=== PATIENT | female | born 1985 | race Hispanic/Latino ===

== ENCOUNTER → 2021-07-07 12:31 | Outpatient (CLI) | payer OTHER, MEDICAID, SELFPAY ==
[2021-07-07 19:38] LABS: Add Manual Diff / Slide Review NO; Basophils Absolute Auto 100 /uL (0-100); Basophils Percent Auto 1.3 % (0-2); Eosinophils Absolute Auto 100 /uL (0-450); Eosinophils Percent Auto 1.7 % (2-4); Hematocrit 39.8 % (36-46); Hemoglobin 13.2 g/dL (12.0-16.0); Lymphocytes Absolute Auto 2100 /uL (1100-4500); Mean Corpuscular HGB Conc 33.2 % (30-36); Mean Corpuscular Hemoglobin 31.8 PG (26-34); Mean Corpuscular Volume 95.8 fL (80-100); Monocytes Absolute Auto 600 /uL (0-900); Monocytes Percent Auto 9.7 % (3-14); Neutrophils Absolute Auto 3100 /uL (1500-7000); Neutrophils Percent Auto 52.3 % (50-75); Platelet Count 259 X10^3/uL (150-400); Red Blood Cell Count 4.16 X10^6/uL (4.0-5.2); Red Cell Distribution Width 12.9 % (11.6-14.8); White Blood Cell Count 5.9 X10^3/uL (4.5-11.0)
[2021-07-07 19:40] LABS: Alanine Aminotransferase 19 IU/L (<35); Albumin 4.4 g/dL (3.5-5.0); Albumin Globulin Ratio 1.5 (1.0-2.8); Alkaline Phosphatase 38 U/L (38-126); Aspartate Aminotransferase 22 IU/L (14-36); BUN Creatinine Ratio 24.6 (6-22); Bilirubin Total 1.6 mg/dL (0.2-1.3); Blood Urea Nitrogen 14 mg/dL (7-17); Calcium 10.1 mg/dL (8.4-10.2); Carbon Dioxide 31 mmol/L (22-32); Chloride 99 mmol/L (98-107); Estimated Glomerular Filt Rate > 60.0 mL/min (>60); Globulin 2.9 g/dL (1.7-4.1); Glucose 101 mg/dL (70-100); HEMOLYSIS < 15 (0-50); Potassium 4.4 mmol/L (3.4-5.1); Sodium 136 mmol/L (137-145); Total Protein 7.3 g/dL (6.3-8.2)
== END ==
PROVIDERS: PCP Physician Assistant; Visit Provider Physician Assistant
DX: F90.9 Attention-deficit hyperactivity disorder, unspecified type (principal); Z79.899 Other long term (current) drug therapy; F41.9 Anxiety disorder, unspecified
CPT/HCPCS: 80053; 85025

== ENCOUNTER → 2021-07-21 09:22 | Outpatient (CLI) | payer OTHER, MEDICAID, SELFPAY ==
[2021-07-21 19:28] LABS: Alanine Aminotransferase 20 IU/L (<35); Albumin 4.1 g/dL (3.5-5.0); Albumin Globulin Ratio 1.5 (1.0-2.8); Alkaline Phosphatase 34 U/L (38-126); Aspartate Aminotransferase 23 IU/L (14-36); BUN Creatinine Ratio 21.4 (6-22); Blood Urea Nitrogen 12 mg/dL (7-17); Carbon Dioxide 27 mmol/L (22-32); Chloride 104 mmol/L (98-107); Estimated Glomerular Filt Rate > 60.0 mL/min (>60); Globulin 2.8 g/dL (1.7-4.1); Glucose 100 mg/dL (70-100); HEMOLYSIS < 15 (0-50); Potassium 4.5 mmol/L (3.4-5.1); Sodium 138 mmol/L (137-145); Total Protein 6.9 g/dL (6.3-8.2)
[2021-07-21 20:40] LABS: Urine N gonorrhoeae NOT DETECTED
[2021-07-21 20:42] LABS: Urine Chlamydia NOT DETECTED
[2021-07-22 08:45] LABS: HCG Quantitative /Beta subunit 22.6 mIU/mL
[2021-07-22 16:26] LABS: HIV 1 & 2 Ab/Ag 4th Gen Combo NEGATIVE (NEGATIVE)
[2021-07-22 16:39] LABS: Hep C Virus Ab w/Reflex Quant NEGATIVE s/c (NEGATIVE)
[2021-07-23 08:53] LABS: Candida species Negative (Negative); Gardnerella vaginalis Negative (Negative); Trichomoas vaginalis Negative (Negative)
[2021-07-23 08:53] LABS: RPR Screen Non Reactive (Non Reactive)
== END ==
PROVIDERS: PCP Physician Assistant; Visit Provider Physician Assistant
DX: Z11.3 Encounter for screening for infections with a predominantly sexual mode of transmission (principal); Z20.5 Contact with and (suspected) exposure to viral hepatitis; R17 Unspecified jaundice
CPT/HCPCS: 80053; 81025; 84702; 86592; 86803; 87389; 87480; 87491; 87510; 87591; 87660

== ENCOUNTER 2021-07-23 22:08 | Emergency (ER) | payer OTHER, MEDICAID, SELFPAY ==
[2021-07-23 22:24] VITALS: BP 123/75; PULSE 105; RESP 20; TEMP 37.2; O2SAT 97
--- NOTE | 2021-07-23 22:56 | DI.US.S_ITS ---
PROCEDURE: US OB <= 14 WEEKS FETUS INDICATIONS: pelvic pain, TECHNIQUE: Real-time scanning was performed of the fetus and maternal pelvic organs, with image documentation. Endovaginal scanning was also performed to better visualize the fetus and maternal ovaries. COMPARISON: None. FINDINGS: The uterus is anteverted measuring 8.9 x 4.6 x 5.0 cm. The endometrial complex measures up to 11.5 mm in thickness. A small posterior midline subserosal and intramural fibroid measures 1.9 x 1.2 x 1.6 cm. No intrauterine gestational sac is seen. The right ovary measures 3.8 x 2.0 x 2.3 cm. The left ovary measures 4.5 x 2.9 x 4.9 cm. A complex cyst is seen in the left ovary measuring 2.9 x 2.8 x 2.8 cm with septations and low-level echoes. No free fluid is seen in the pelvis. IMPRESSION: 1. of unknown location. No intrauterine or ectopic is seen. The patient remains at risk for ectopic . Recommend clinical correlation and follow-up with serial beta HCG and repeat ultrasound as needed. 2. Left ovarian 2.9 cm cyst may represent a corpus luteal cyst. Attention on follow-up exams is recommended. We strive to produce accurate, complete, and clear reports of imaging services. To assist us in improving patient care, this report was composed using standard report templates and voice recognition software. Therefore, it may contain abnormal punctuation, insertions and/or omissions. Occasional wrong-word or sound-alike substitutions may occur. Though we review the report and make efforts to correct it, we do recommend that the report be read carefully in proper context to recognize any text inaccuracies. Dictated by: Andres Shah M.D. on 07/24/2021 at 0:58 Approved by: Andres Shah M.D. on 07/24/2021 at 1:03
[2021-07-23 23:00] LABS: Add Manual Diff / Slide Review NO; Basophils Absolute Auto 100 /uL (0-100); Basophils Percent Auto 0.9 % (0-2); Eosinophils Absolute Auto 100 /uL (0-450); Eosinophils Percent Auto 1.1 % (2-4); Hematocrit 41.1 % (36-46); Hemoglobin 14.5 g/dL (12.0-16.0); Lymphocytes Absolute Auto 2800 /uL (1100-4500); Mean Corpuscular HGB Conc 35.3 % (30-36); Mean Corpuscular Hemoglobin 32.6 PG (26-34); Mean Corpuscular Volume 92.4 fL (80-100); Monocytes Absolute Auto 500 /uL (0-900); Monocytes Percent Auto 5.1 % (3-14); Neutrophils Absolute Auto 6000 /uL (1500-7000); Neutrophils Percent Auto 62.9 % (50-75); Platelet Count 261 X10^3/uL (150-400); Red Blood Cell Count 4.44 X10^6/uL (4.0-5.2); Red Cell Distribution Width 12.4 % (11.6-14.8); White Blood Cell Count 9.5 X10^3/uL (4.5-11.0)
[2021-07-23 23:07] LABS: BUN Creatinine Ratio 19.6 (6-22); Blood Urea Nitrogen 11 mg/dL (7-17); Calcium 9.9 mg/dL (8.4-10.2); Carbon Dioxide 26 mmol/L (22-32); Chloride 103 mmol/L (98-107); Estimated Glomerular Filt Rate > 60.0 mL/min (>60); Glucose 85 mg/dL (70-100); HEMOLYSIS < 15 (0-50); Potassium 3.5 mmol/L (3.4-5.1); Sodium 139 mmol/L (137-145)
[2021-07-23 23:25] LABS: HCG Quantitative /Beta subunit 88.1 mIU/mL
--- NOTE | 2021-07-23 23:47 | ED_ITS ---
HPI - Female Genitourinary General Chief complaint: OB/Uterine Contractions Stated complaint: PELVIC PAIN BLOATED BELLY Time Seen by Provider: 07/23/21 22:17 Source: patient Mode of arrival: Ambulatory Limitations: no limitations History of Present Illness HPI Narrative: 36-year-old female former smoker is a very early in presents with a friend and a chief complaint of some mild suprapubic fullness and cramping for the past day or 2. She routinely has very irregular periods and is unclear when her last normal menstrual cycle was. She states that she had taken a test a few days ago and just found out she was . She has no fever chills. She denies any nausea or vomiting. She denies any vaginal bleeding, discharge or leakage of fluid. She states that she has admittedly concerned about the possibility of an ectopic as she had an ectopic a few years ago. She states that she does not intend to keep this and has contacted facility is already about the possibility of a medical . She states she had labs drawn on Monday in her beta-hCG was 22. Related Data Home Medications Medication Instructions Recorded Confirmed dextroamphetamine-amphetamine 10 10 mg PO BID 07/21/21 07/21/21 mg tablet (Adderall) Previous Rx's Medication Instructions Recorded valacyclovir 500 mg tablet 500 mg PO Q12H #6 tab 07/21/21 Allergies Allergy/AdvReac Type Severity Reaction Status Date / Time No Known Drug Allergies Allergy Verified 07/07/21 12:14 Review of Systems Review of Systems Narrative: GENERAL: Denies chills, fatigue, malaise, fever, sweats. HEENT: Denies sinus pain, ear pain, sore throat, difficulty swallowing, dizziness. RESPIRATORY: Denies dyspnea, cough, wheezing, hemoptysis, sputum. CARDIOVASCULAR: Denies chest pain, palpitations, orthopnea, edema, GASTROINTESTINAL: Denies nausea, vomiting, abdominal pain, diarrhea, constipation, melena. : See HPI MUSCULOSKELETAL: denies weakness, joint pain, or bony pain SKIN: Denies rash, skin lesions, or other NEUROLOGIC: Denies weakness, headache, numbness, change in speech, confusion, seizures, incoordination. PSYCHIATRIC: No concerning psychosocial issues. 12 point review of systems is negative except for those stated above Patient History Medical History Asthma Hearing loss Irregular menstrual cycle Keratosis pilaris (~2018) Painful menstrual periods Personality disorder (~1999) PTSD (post-traumatic stress disorder) (~2017) Substance abuse (~2017) Family History Grandfather Mental health problem Dementia Grandmother Cancer Substance Use Type: does not use Exam Narrative Exam Narrative: GENERAL: [36 year old patient appears stated age. Well-developed patient, in mild distress. HEAD: Atraumatic. Normocephalic. EYES: Pupils equal round and reactive. Extraocular motions intact. No scleral icterus. No injection or drainage. ENT: Nose without bleeding, purulent drainage. Throat without erythema, tonsillar hypertrophy or exudate. Airway patent. NECK: Trachea midline. Non tender CARDIOVASCULAR: Regular rate and rhythm without murmurs, gallops, or rubs. RESPIRATORY: Clear to auscultation. Breath sounds equal bilaterally. No wheezes, rales, or rhonchi. GASTROINTESTINAL: Abdomen soft, non-tender, nondistended. EXTREMITIES: No edema or joint tenderness. BACK: Nontender without deformity or crepitance. No flank tenderness. NEURO: AOx3. SKIN: No rash or erythema of visible areas Initial Vital Signs Initial Vital Signs: Vital Signs Temperature 99 F 07/23/21 22:24 Pulse Rate 105 H 07/23/21 22:24 Respiratory Rate 20 07/23/21 22:24 Blood Pressure 123/75 07/23/21 22:24 Pulse Oximetry 97 07/23/21 22:24 Course Orders Ordered: ED Orders 07/23/21 22:45 ABO RH Type Stat BMP [Basic Metabolic Panel] Stat Beta HCG, Quant [HCG Quantitative /Beta subunit] Stat CBC Auto Diff [Complete Blood Count AUTO DIFF] Stat 07/23/21 22:56 US pelvic complete Stat 07/24/21 00:30 Urinalysis and Microscopic Stat Vital Signs Vital signs: Vital Signs - 8 hr 07/23/21 22:24 07/24/21 01:42 Temperature 99 F Pulse Rate 105 H 92 H Respiratory Rate 20 18 Blood Pressure 123/75 131/78 Pulse Oximetry 97 98 MDM - Female Genitourinary Lab Data Result diagrams: 07/23/21 22:45 07/23/21 22:45 Labs: Lab Results 07/23/21 07/23/21 07/23/21 Range/Units 22:45 22:45 22:45 WBC 9.5 (4.5-11.0) X10^3/uL RBC 4.44 (4.0-5.2) X10^6/uL Hgb 14.5 (12.0-16.0) g/dL Hct 41.1 (36-46) % MCV 92.4 (80-100) fL MCH 32.6 (26-34) PG MCHC 35.3 (30-36) % RDW 12.4 (11.6-14.8) % Plt Count 261 (150-400) X10^3/uL Neut % (Auto) 62.9 (50-75) % Lymph % (Auto) 30.0 (25-40) % [place] % (Auto) 5.1 (3-14) % Eos % (Auto) 1.1 L (2-4) % Baso % (Auto) 0.9 (0-2) % Neut # (Auto) 6000 (8752-1257) /uL Lymph # (Auto) 2800 (2184-3310) /uL [place] # (Auto) 500 (0-900) /uL Eos # (Auto) 100 (0-450) /uL Baso # (Auto) 100 (0-100) /uL Sodium 139 (137-145) mmol/L Potassium 3.5 (3.4-5.1) mmol/L Chloride 103 (98-107) mmol/L Carbon Dioxide 26 (22-32) mmol/L BUN 11 (7-17) mg/dL Creatinine 0.56 (0.52-1.04) mg/dL Estimated GFR > 60.0 (>60) mL/min BUN/Creatinine Ratio 19.6 (6-22) Glucose 85 (70-100) mg/dL Calcium 9.9 (8.4-10.2) mg/dL HCG, Quant 88.1 mIU/mL Urine Color Urine Appearance Urine pH (4.5-8.0) Ur Specific [place] (1.000-1.035) Urine Protein (Negative) Urine Glucose (UA) (Negative) g/dL Urine Ketones (NEGATIVE) Urine Occult Blood (Negative) Urine Nitrate (Negative) Urine Bilirubin (NEGATIVE) Urine Urobilinogen (0.2) E.U./dL Ur Leukocyte Esterase (NEGATIVE) Urine RBC (0-5/HPF) Urine WBC (0-5/HPF) Ur Squamous Epith Cells (0-5/HPF) Urine Bacteria (None) Urine Mucus (Negative) Ur Culture Indicated? Blood Type A Positive 07/24/21 Range/Units 00:30 WBC (4.5-11.0) X10^3/uL RBC (4.0-5.2) X10^6/uL Hgb (12.0-16.0) g/dL Hct (36-46) % MCV (80-100) fL MCH (26-34) PG MCHC (30-36) % RDW (11.6-14.8) % Plt Count (150-400) X10^3/uL Neut % (Auto) (50-75) % Lymph % (Auto) (25-40) % [place] % (Auto) (3-14) % Eos % (Auto) (2-4) % Baso % (Auto) (0-2) % Neut # (Auto) (2027-4690) /uL Lymph # (Auto) (0715-3910) /uL [place] # (Auto) (0-900) /uL Eos # (Auto) (0-450) /uL Baso # (Auto) (0-100) /uL Sodium (137-145) mmol/L Potassium (3.4-5.1) mmol/L Chloride (98-107) mmol/L Carbon Dioxide (22-32) mmol/L BUN (7-17) mg/dL Creatinine (0.52-1.04) mg/dL Estimated GFR (>60) mL/min BUN/Creatinine Ratio (6-22) Glucose (70-100) mg/dL Calcium (8.4-10.2) mg/dL HCG, Quant mIU/mL Urine Color Yellow Urine Appearance Clear Urine pH 5.5 (4.5-8.0) Ur Specific [place] 1.025 (1.000-1.035) Urine Protein Trace H (Negative) Urine Glucose (UA) Negative (Negative) g/dL Urine Ketones Negative (NEGATIVE) Urine Occult Blood Negative (Negative) Urine Nitrate Negative (Negative) Urine Bilirubin Negative (NEGATIVE) Urine Urobilinogen 0.2 (0.2) E.U./dL Ur Leukocyte Esterase Negative (NEGATIVE) Urine RBC None seen (0-5/HPF) Urine WBC None seen (0-5/HPF) Ur Squamous Epith Cells 0-1 /hpf (0-5/HPF) Urine Bacteria None seen (None) Urine Mucus 1+ H (Negative) Ur Culture Indicated? Cult not indicated Blood Type Imaging Data US - NATIONAL COVERAGE SPECIALIST: Radiologist's Impression: Close Pelvis Ultrasound (Signed) Andres Shah - 07/23/21 Launch?[address] [address] Ultrasound Report Signed Patient: Trupti Deras MR#: [id number] : 1985 Acct:[id number] Age/Sex: 36 / F Date of Service: 07/23/21 Loc: ED Accession Number: [id number] ?? Procedure: US pelvic complete Ordering Provider: Andrew Tubbs D.O. PROCEDURE:? US OB <= 14 WEEKS FETUS ? INDICATIONS:? pelvic pain, ? TECHNIQUE:? Real-time scanning was performed of the fetus and maternal pelvic organs, with image documentation.? Endovaginal scanning was also performed to better visualize the fetus and maternal ovaries.? ? COMPARISON:? None. ? FINDINGS:? ? The uterus is anteverted measuring 8.9 x 4.6 x 5.0 cm.? The endometrial complex measures up to 11.5 mm in thickness.? A small posterior midline subserosal and intramural fibroid measures 1.9 x 1.2 x 1.6 cm.? No intrauterine gestational sac is seen. ? The right ovary measures 3.8 x 2.0 x 2.3 cm.? The left ovary measures 4.5 x 2.9 x 4.9 cm. A complex cyst is seen in the left ovary measuring 2.9 x 2.8 x 2.8 cm with septations and low-level echoes. ? No free fluid is seen in the pelvis.? ? IMPRESSION:? 1. of unknown location.? No intrauterine or ectopic is seen.? The patient remains at risk for ectopic .? Recommend clinical correlation and follow-up with serial beta HCG and repeat ultrasound as needed. ? 2. Left ovarian 2.9 cm cyst may represent a corpus luteal cyst.? Attention on follow-up exams is recommended. ? We strive to produce accurate, complete, and clear reports of imaging services. To assist us in improving patient care, this report was composed using standard report templates and voice recognition software. Therefore, it may contain abnormal punctuation, insertions and/or omissions. Occasional wrong-word or sound-alike substitutions may occur. Though we review the report and make efforts to correct it, we do recommend that the report be read carefully in proper context to recognize any text inaccuracies. ? ? ? Dictated by: Andres Shah M.D. on 07/24/2021 at 0:58 ? ? Approved by: Andres Shah M.D. on 07/24/2021 at 1:03 ? MDM Narrative Medical decision making narrative: Patient with mild suprapubic cramping and bloating. She has a very reassuring history and physical exam. Labs are unremarkable. We discussed the unlikely ability to diagnose ectopic this evening given how lower HCG is. Pelvic ultrasound was ordered to rule out other possible causes of her symptoms. Urine is unremarkable. Patient's exam is very reassuring. She was given extensive return precautions including a reasonable timeframe to follow up, have repeat hCG and likely repeat ultrasound. Her questions have been answered to her apparent satisfaction Discharge Plan Departure Patient Disposition: Home Clinical Impression: Pelvic cramping, Instructions: DI for -- Discomforts and Remedies Activity Restrictions/Additional Instructions: *You have been diagnosed with [pelvic cramping in . Your physical exam, history and labs are very reassuring. The pelvic ultrasound does not demonstrate any abnormal findings, but as we discussed it is likely too early in her to visualize the location of . *What to do: *Please continue to take your regular medications as directed. [ ] New medication prescriptions sent to your pharmacy: [ ] [ ] New medication written as a paper prescription [ x] No new medications given *Please follow up with your primary care provider in 2-3 days, call for an appointment. Let them know you were seen in the Emergency Department and that we ask that you be seen in follow up. We will electronically transmit a record of today's note if your PCP is in our system *On 07/21 your hcg was 22, today it was 88. You will need to follow up with your doctor to trend your HCG and likely have a repeat US once your HCG is above 1500. This number typically doubles every 2-3 days and at that rate you will likely be above 1500 in about a week. You still could have an ectopic, but it is too early to tell. *If you do not have a primary care provider please contact the [facility] Resource line at [phone]. They will ask some questions about your medical history and help get you set up with a doctor in the community. *Return to Emergency Department if you should have any new, worsening or concerning symptoms, such as [fever greater than 101 F, shaking chills, worsening pain, persistent vomiting, heavy vaginal bleeding with the use of 1 pad per hour or more or other bothersome symptoms] Prescriptions: No Action dextroamphetamine-amphetamine [Adderall] 10 mg tablet 10 mg PO BID 0RF Rx Instructions: administer doses at least 4-6 hours apart valacyclovir 500 mg tablet 500 mg PO Q12H Qty: 6 2RF Referrals: Kimberly Tinsley PA-C [Primary Care Provider] -
[2021-07-24 01:31] LABS: Appearance Urine UA CLEAR; Bilirubin Urine UA NEGATIVE (NEGATIVE); Color Urine UA YELLOW; Glucose Urine UA NEGATIVE (Negative); Ketones Urine UA NEGATIVE (NEGATIVE); Leukocyte Esterase Urine UA NEGATIVE (NEGATIVE); Nitrite Urine UA NEGATIVE (Negative); Occult Blood Urine UA NEGATIVE (Negative); Protein Urine UA TRACE (Negative); Specific Gravity Urine UA 1.025 (1.000-1.035); Urobilinogen Urine UA 0.2 E.U./dL (0.2)
[2021-07-24 01:35] LABS: pH Urine UA 5.5 (4.5-8.0)
[2021-07-24 01:42] VITALS: BP 131/78; PULSE 92; RESP 18; O2SAT 98
[2021-07-24 02:24] LABS: Bacteria Urine None Seen; Culture Indicated Urine Cult Not Indicated; Mucus Urine 1+ (Negative); RBC Urine None Seen (0-5/HPF); Squamous Epithelial Cell Urine 0-1 /HPF (0-5/HPF); WBC Urine None Seen (0-5/HPF)
== END 2021-07-24 01:45 | disposition home or self-care (01) ==
PROVIDERS: Emergency Provider Emergency Medicine; PCP Physician Assistant
DX: O26.891 Other specified pregnancy related conditions, first trimester (principal); R10.2 Pelvic and perineal pain; Z3A.01 Less than 8 weeks gestation of pregnancy
CPT/HCPCS: 36415; 76830; 76856; 80048; 81001; 84702; 85025; 86900; 86901; 99283; 99284

== ENCOUNTER → 2021-07-28 09:56 | Outpatient (CLI) | payer OTHER, MEDICAID, SELFPAY ==
[2021-07-28 20:07] LABS: HCG Quantitative /Beta subunit 627.8 mIU/mL
== END ==
PROVIDERS: PCP Physician Assistant; Referring Provider Physician Assistant; Visit Provider Physician Assistant
DX: Z34.90 Encounter for supervision of normal pregnancy, unspecified, unspecified trimester (principal)
CPT/HCPCS: 84702

== ENCOUNTER → 2021-08-03 13:06 | Outpatient (CLI) | payer OTHER, MEDICAID, SELFPAY ==
[2021-08-03 19:50] LABS: HCG Quantitative /Beta subunit 6368.1 mIU/mL
== END ==
PROVIDERS: PCP Physician Assistant; Visit Provider Physician Assistant
DX: Z34.90 Encounter for supervision of normal pregnancy, unspecified, unspecified trimester (principal)
CPT/HCPCS: 84702

== ENCOUNTER → 2023-09-04 11:02 | Outpatient (CLI) | payer OTHER, SELFPAY | PROVIDERS: PCP Family Medicine; Visit Provider Family Medicine | DX: R31.9 Hematuria, unspecified (principal) | CPT/HCPCS: 87077; 87086; 87186 ==

== ENCOUNTER 2023-10-15 11:23 | Observation (INO) | payer OTHER, SELFPAY ==
[2023-10-15] VITALS (8 sets, daily range): BP systolic 125–138; BP diastolic 66–93; PULSE 93–109; RESP 15–19; TEMP 36.7–37; O2SAT 97–100; BMI 22.3; BMI 24.0
[2023-10-15] MEDS: SODIUM CHLORIDE 0.9% 1,000 ML 1000 ML IV ×2 (12:35→16:07)
[2023-10-15 12:36] LABS: Add Manual Diff / Slide Review NO; Basophils Absolute Auto 200 /uL (0-100); Basophils Percent Auto 2.5 % (0-2); Eosinophils Absolute Auto 0 /uL (0-450); Eosinophils Percent Auto 0.6 % (2-4); Hematocrit 39.7 % (36-46); Hemoglobin 13.5 g/dL (12.0-16.0); Lymphocytes Absolute Auto 900 /uL (1100-4500); Lymphocytes Percent Auto 13.9 % (25-40); Mean Corpuscular HGB Conc 34.1 % (30-36); Mean Corpuscular Hemoglobin 33.3 PG (26-34); Mean Corpuscular Volume 97.5 fL (80-100); Monocytes Absolute Auto 300 /uL (0-900); Monocytes Percent Auto 5.3 % (3-14); Neutrophils Absolute Auto 5000 /uL (1500-7000); Neutrophils Percent Auto 77.7 % (50-75); Platelet Count 243 X10^3/uL (150-400); Red Blood Cell Count 4.07 X10^6/uL (4.0-5.2); Red Cell Distribution Width 13.6 % (11.6-14.8); White Blood Cell Count 6.4 X10^3/uL (4.5-11.0)
--- NOTE | 2023-10-15 12:36 | ED.GENADULT ---
HPI - General Adult General Chief complaint: Toxicology Problem Stated complaint: alcohol withdraw Time Seen by Provider: 10/15/23 11:55 Source: patient Mode of arrival: Family Vehicle History of Present Illness HPI narrative: 38-year-old woman with a history of anxiety, depression, self-harm with cutting particularly while she is intoxicated, ADHD who presents for help with acute alcohol withdrawal. She has a long history of alcohol use disorder describes a 5 year period of sobriety and approximately 2 years ago began drinking, rapidly got back to current levels of alcohol use. Describes drinking around half a 5th of whiskey daily. In the past she is gotten to sober with ?will power?. She has not been through any formal alcohol use disorder treatment options. She comes in today with her ex-boyfriend asking for help with her withdrawal symptoms. She does not take her sunglasses off in the room, she is anxious with a CIWA score of 13 but not completely forthcoming with information and does not seem particularly invested in being here. She currently lives in [place] in her support system lives on [facility]. She describes no vomiting, black stools, fever, cough, chills. She notes that she has been doing some self cutting recently due to depression. When bringing up the possibility of depression she becomes quite defensive and not willing to continue engaging in conversation. Related Data Home Medications Medication Instructions Recorded Confirmed dextroamphetamine-amphetamine 5 mg 1 tab PO 4XD 10/15/23 10/15/23 tablet Previous Rx's Medication Instructions Recorded naproxen 500 mg tablet 500 mg PO BID PRN pain #40 tabs 11/22/22 hydroxyzine HCl 10 mg tablet 10 mg PO BEDTIME #90 tabs 10/10/23 Allergies Allergy/AdvReac Type Severity Reaction Status Date / Time No Known Drug Allergies Allergy Verified 10/15/23 11:51 Review of Systems Review of Systems Narrative: Pertinent positive and negative findings as per HPI Patient History Medical History Alcohol use disorder ADHD (attention deficit hyperactivity disorder), combined type Hearing loss Asthma Painful menstrual periods Irregular menstrual cycle Family History Grandfather Mental health problem Dementia Grandmother Cancer Social History household members: none Smoking Status: Current every day smoker alcohol intake: current Smoking Status: Current every day smoker tobacco type: vaping alcohol intake frequency: 3 or more drinks per day Alcohol type: hard liquor Substance Use Type: does not use Exam Initial Vital Signs Initial Vital Signs: Vital Signs Temperature 98.0 F 10/15/23 11:33 Pulse Rate 93 H 10/15/23 11:33 Respiratory Rate 19 10/15/23 11:33 Blood Pressure 131/93 H 10/15/23 11:33 Pulse Oximetry 99 10/15/23 11:33 Oxygen Delivery Method Room Air 10/15/23 11:33 General: Disheveled, light sensitivity not interested in taking her sunglasses off, agitated and difficultly sitting still HEENT: Moist mucous membranes, normal sclera with reactive pupils, Respiratory: Lungs are clear to auscultation, no wheezing no rales no rhonchi. Full and symmetrical air movement Cardiac: Tachycardic but otherwise Regular rate and rhythm no murmurs no bruits Abdomen: Soft, nontender, good bowel tones, no flank pain Skin: Warm and dry, Neurologic: CIWA score of 13 and otherwise Grossly neurologically intact with no obvious asymmetries or abnormalities Extremities: Left forearm with scratches from self-harm none of which need repair at this time Psych: Defensive but nonpressured speech Course Orders Ordered: ED Orders 10/15/23 12:00 Urine Culture Stat Urine Drug Screen, Rapid Stat 10/15/23 12:29 Acetaminophen Stat Beta HCG, Quant [HCG Quantitative /Beta subunit] Stat Salicylate Stat 10/15/23 12:31 Complete Blood Count AUTO DIFF Stat Comprehensive Metabolic Panel Stat Ethanol (ETOH) Stat Magnesium Stat Clonidine HCl (Clonidine 0.1 Mg Tablet) 0.1 mg PO Q4HR PRN PRN Reason: Alcohol Withdrawal Folic Acid (Folic Acid 1 Mg Tablet) 1 mg PO DAILY LALITA Sodium Chloride (Normal Saline 0.9%) 1,000 mls @ 100 mls/hr IV CONT LALITA Last Admin: 10/15/23 18:36 Dose: 100 mls/hr Documented By: MM Lorazepam (Lorazepam 2 Mg/Ml Inj) 0 mg IV CIWAPRN PRN; Protocol PRN Reason: Alcohol Withdrawal Multivitamins (Multivitamin 1 Tablet) 1 tab PO DAILY LALITA Naloxone HCl (Naloxone 0.4 Mg/Ml Vial) 0.2 mg IV Q2MIN PRN PRN Reason: Opiate Reversal Ondansetron HCl (Ondansetron 4 Mg/2 Ml Inj) 4 mg IV Q8HR PRN PRN Reason: Nausea And Vomiting Oxycodone HCl (Oxycodone Ir 5 Mg Tablet) 5 mg PO Q3H PRN PRN Reason: Pain, Moderate (4-6) Thiamine HCl (Thiamine 100 Mg Tablet) 100 mg PO DAILY LALITA Stop: 10/19/23 09:01 Discontinued Medications Sodium Chloride (Normal Saline 0.9%) 1,000 mls @ 1,000 mls/hr IV BOLUS ONE Stop: 10/15/23 13:26 Last Infusion: 10/15/23 13:35 Dose: Infused Documented By: Admin: 10/15/23 12:35 Dose: 1,000 mls/hr Documented By: TC Thiamine HCl 100 mg/ Sodium (Chloride) 101 mls @ 404 mls/hr IV NOW ONE Stop: 10/15/23 12:39 Last Admin: 10/15/23 12:54 Dose: 404 mls/hr Documented By: TC Sodium Chloride (Normal Saline 0.9%) 1,000 mls @ 1,000 mls/hr IV BOLUS ONE Stop: 10/15/23 13:37 Last Infusion: 10/15/23 17:08 Dose: Infused Documented By: Admin: 10/15/23 16:07 Dose: 1,000 mls/hr Documented By: TC Lorazepam (Lorazepam 2 Mg/Ml Inj) 2 mg IV NOW ONE Stop: 10/15/23 12:39 Last Admin: 10/15/23 12:51 Dose: 2 mg Documented By: TC Lorazepam (Lorazepam 2 Mg/Ml Inj) 2 mg IV NOW ONE Stop: 10/15/23 13:30 Last Admin: 10/15/23 17:07 Dose: 2 mg Documented By: TC Lorazepam (Lorazepam 2 Mg/Ml Inj) 2 mg IV NOW ONE Stop: 10/15/23 17:41 Last Admin: 10/15/23 18:35 Dose: 2 mg Documented By: MM Vital Signs Vital signs: Vital Signs - 8 hr 10/15/23 11:33 10/15/23 16:04 Temperature 98.0 F Pulse Rate 93 H 102 H Respiratory Rate 19 18 Blood Pressure 131/93 H 128/81 Pulse Oximetry 99 97 Oxygen Delivery Method Room Air Room Air Medical Decision Making Lab Data 10/15/23 12:31 10/15/23 12:31 Labs: Lab Results 10/15/23 10/15/23 10/15/23 Range/Units 12:00 12:29 12:31 WBC 6.4 (4.5-11.0) X10^3/uL RBC 4.07 (4.0-5.2) X10^6/uL Hgb 13.5 (12.0-16.0) g/dL Hct 39.7 (36-46) % MCV 97.5 (80-100) fL MCH 33.3 (26-34) PG MCHC 34.1 (30-36) % RDW 13.6 (11.6-14.8) % Plt Count 243 (150-400) X10^3/uL Neut % (Auto) 77.7 H (50-75) % Lymph % (Auto) 13.9 L (25-40) % [place] % (Auto) 5.3 (3-14) % Eos % (Auto) 0.6 L (2-4) % Baso % (Auto) 2.5 H (0-2) % Neut # (Auto) 5000 (4076-6856) /uL Lymph # (Auto) 900 L (4418-4681) /uL [place] # (Auto) 300 (0-900) /uL Eos # (Auto) 0 (0-450) /uL Baso # (Auto) 200 H (0-100) /uL Sodium 138 (137-145) mmol/L Potassium 3.9 (3.4-5.1) mmol/L Chloride 104 (98-107) mmol/L Carbon Dioxide 23 (22-32) mmol/L BUN 17 (7-17) mg/dL Creatinine 0.61 (0.52-1.04) mg/dL Estimated GFR > 60 (>60) mL/min BUN/Creatinine Ratio 27.9 H (6-22) Glucose 151 H (70-100) mg/dL Calcium 8.8 (8.4-10.2) mg/dL Magnesium 1.8 (1.6-2.3) mg/dL Total Bilirubin 0.8 (0.2-1.3) mg/dL AST 53 H (14-36) IU/L ALT 27 (<35) IU/L Alkaline Phosphatase 65 (38-126) U/L Total Protein 7.2 (6.3-8.2) g/dL Albumin 4.2 (3.5-5.0) g/dL Globulin 3.0 (1.7-4.1) g/dL Albumin/Globulin Ratio 1.4 (1.0-2.8) HCG, Quant < 2.4 mIU/mL Salicylates < 1.0 (<20) mg/dL U Opiates 300ng/mL cut Negative (Negative) Ur Oxycodone Screen Negative (Negative) Urine Methadone Screen Negative (Negative) Acetaminophen < 10 (10-30) ug/mL Ur Barbiturates Screen Negative (Negative) U Tricyclic Antidepress Negative (Negative) Ur Phencyclidine Scrn Negative (Negative) Ur Amphetamines Screen Positive H (Negative) U Methamphetamines Scrn Negative (Negative) Ur MDMA Scrn (Ecstasy) Negative (Negative) U Benzodiazepines Scrn Negative (Negative) Urine Cocaine Screen Negative (Negative) U Marijuana (THC) Screen Negative (Negative) Urine pH Normal (Normal) Urine Specific [place] Normal (Normal) Ethyl Alcohol 116 H ( - 10) mg/dL Ur Creatinine Normal (Normal) Point of Care Testing Test Results Negative Urine Dip Bedside Urine Glucose Negative Bedside Urine Bilirubin - Negative Bedside Urine Ketone ++ 40 Urine Specific [place] 1.030 Bedside Urine Occult Blood + Bedside Urine pH 5.5 Bedside Urine Protein - Negative Bedside Urine Urobilinogen - Negative Bedside Urine Nitrite - Negative Bedside Urine Leukocytes - Negative Esterase Point of care testing: Point of Care Testing Test Results Negative Urine Dip Bedside Urine Glucose Negative Bedside Urine Bilirubin - Negative Bedside Urine Ketone ++ 40 Urine Specific [place] 1.030 Bedside Urine Occult Blood + Bedside Urine pH 5.5 Bedside Urine Protein - Negative Bedside Urine Urobilinogen - Negative Bedside Urine Nitrite - Negative Bedside Urine Leukocytes - Negative Esterase MDM Narrative Medical decision making narrative: CC: Acute alcohol withdrawal Complicating co-morbidities: Alcohol use disorder Data collected from: patient, friend(ex-boyfriend) who accompanies her to the emergency department, mother who takes over when the ex-boyfriend leaves Social determinants of health that may influence the patients condition: Currently lives in [place], social support is on [facility]. Significant depression. Sounds like she clearly has suicidal ideation when she is drinking Medical records reviewed: Primary care note from August of 2023 is reviewed. Discussion of PTSD, ADHD, anxiety disorder chronic neck pain but no mention of alcohol use Differential considered: Alcohol withdrawal, severe alcohol withdrawal, depression, suicidal ideation Exam documented above, pertinent findings include: Patient is tachycardic, irritable, sensitive to light minimally interested in cooperating with history and exam. She has the scratches on her left forearm that are not deep enough to need any type of repair appear 2 to 3-day-old. Remainder of exam is benign Lab Test results independently reviewed as above. Pertinent findings: CBC is unremarkable Chemistries are relatively reassuring. Glucose is slightly elevated at 151, AST is slightly elevated at 53 Quantitative hCG is undetectable, patient is not Tylenol and salicylate levels are undetectable Current alcohol level is 116 with concurrent CIWA score of 13, patient states last drink was at midnight last night Treatments: With the initial CIWA score of 13 she was given 2 mg of Ativan with minimal change. IV fluid, thiamine Re-evaluations: 3pm patient is definitely much calmer, able to doze. Discussed option of hospital admission, calling to consider outpatient treatment versus home with a small course of Librium. Patient continues to perseverate and has multiple reasons for why she could not possibly stay in the hospital. She currently is not demonstrating any indication that she actually wants to quit drinking. Options were reviewed and we will discuss with her briefly. Long discussion with her mother who had similar problems with this woman younger brother who did eventually diaphragm his alcohol use disorder. Discussion: 38-year-old woman with progressively worsening alcohol use disorder feels that she has ?hit rock bottom? yet still finding reasons to make sure that she can continue to drink. When drinking drinking she becomes depressed will cut on her self, mostly in the left forearm. She currently has a diagnosis of ADHD and her mother is concerned that she is overusing/abusing her dextroamphetamine. After long discussion in the emergency department patient agrees that she wants to stay in the hospital to deal with her acute alcohol withdrawal symptoms. She will benefit from web content & social media manager consult regarding both her alcohol use as well as her mental health issues. She agrees to not leave Against Medical Advice when she feels that it is time for another drink. Her mother and her ex-boyfriend are both present and are both very supportive. Care is reviewed with Dr. Nava and patient will be admitted to the hospitalist service. Discharge Plan Departure Patient Disposition: Admitted As Inpatient Clinical Impression: Alcohol use disorder, Depression with suicidal ideation, Intentional self-harm Alcohol withdrawal Qualifiers: Complication of substance-induced condition: uncomplicated Qualified Code(s): F10.930 - Alcohol use, unspecified with withdrawal, uncomplicated Admit Date/Time: 10/15/23 16:39 Admit Provider: Mazin Nava
[2023-10-15 12:41] LABS: Alanine Aminotransferase 27 IU/L (<35); Albumin 4.2 g/dL (3.5-5.0); Albumin Globulin Ratio 1.4 (1.0-2.8); Alkaline Phosphatase 65 U/L (38-126); Aspartate Aminotransferase 53 IU/L (14-36); BUN Creatinine Ratio 27.9 (6-22); Bilirubin Total 0.8 mg/dL (0.2-1.3); Blood Urea Nitrogen 17 mg/dL (7-17); Calcium 8.8 mg/dL (8.4-10.2); Carbon Dioxide 23 mmol/L (22-32); Chloride 104 mmol/L (98-107); Estimated Glomerular Filt Rate > 60 mL/min (>60); Ethanol (ETOH) 116 mg/dL; Glucose 151 mg/dL (70-100); HEMOLYSIS < 15 (0-50); Magnesium 1.8 mg/dL (1.6-2.3); Potassium 3.9 mmol/L (3.4-5.1); Sodium 138 mmol/L (137-145); Total Protein 7.2 g/dL (6.3-8.2)
[2023-10-15] MEDS: LORazepam 2 MG/ML INJ IV ×3 (12:51→18:35)
[2023-10-15] MEDS: THIAMINE 100 MG in SODIUM CHLORIDE 0.9% 100 ML 404 MG IV (12:54)
[2023-10-15 12:55] LABS: Acetaminophen < 10 ug/mL (10-30); Salicylate < 1.0 mg/dL (<20)
[2023-10-15 13:11] LABS: HCG Quantitative /Beta subunit < 2.4 mIU/mL
[2023-10-15 13:25] LABS: Ur Creatinine Normal (Normal); Ur Specific Gravity Normal (Normal); Urine Tetrahydrocannabinol Negative (Negative); Urine pH Normal (Normal)
[2023-10-15 13:26] LABS: UR Morphine/Opiate cutoff 300 Negative (Negative); Urine Amphetamines Positive (Negative); Urine Barbiturates Negative (Negative); Urine Benzodiazepines Negative (Negative); Urine Cocaine Negative (Negative); Urine MDMA Negative (Negative); Urine Methadone Negative (Negative); Urine Methamphetamines Negative (Negative); Urine Oxycodone Negative (Negative); Urine Phencyclidine Negative (Negative); Urine Tricyclic Antidepressant Negative (Negative)
--- NOTE | 2023-10-15 16:06 | PM.HP.1 ---
History of Present Illness History of Present Illness Date Patient Seen: 10/15/23 Time Patient Seen: 16:06 Chief complaint: alcohol withdraw Narrative: The patient is a 38-year-old female with history of anxiety, depression, and self-harm as well as ADHD and alcohol use disorder. She presents today with acute alcohol withdrawal. She had been sober for about 5 years from age [age]. She has recently been drinking up to a half of a bottle of whiskey on a daily basis. She is currently working as a field service technician. This period of drinking has been ongoing for approximately 2 years. She has escalated back to previous high levels consumption. She denies history of any rehabilitation or other treatment options in the past. She apparently reached out to her ex-boyfriend to ask for help and was brought to the emergency department. Here she has a CIWA score of 13. She notes that her depression is more active recently and she has been doing some self-harm with cutting. She lives in [place], her mother is with her and lives in [place]. She is currently bartending 2 different places. She is in an on again off again relationship with somebody on [facility]. She denies use of street drugs. She notes that she believes she has borderline personally disorder and that she is very sensitive and this is why she needs to self medicate. She is drinking close to a bottle of whiskey a day. She would her last drink last night around midnight. She will frequently drink in the morning. She has never done rehabilitation, and does not resonate with AA. She has had up to 5 years of broken sobriety in the past. She believes that she is slowly trying to drink herself to . She denies recent injuries, difficulty with breathing, or chest pain. She is concerned about a lump in her left breast. She denies any nausea or vomiting. No rectal bleeding. [facility] Medical History Alcohol use disorder ADHD (attention deficit hyperactivity disorder), combined type Hearing loss Asthma Painful menstrual periods Irregular menstrual cycle Family History Grandfather Mental health problem Dementia Grandmother Cancer Social History Smoking Status: Current every day smoker Meds Home Medications and Allergies Home Medications Medication Instructions Recorded Confirmed Type cyclobenzaprine 5 mg tablet 10 mg (2 x 5 mg) PO TID #30 tabs 11/22/22 09/04/23 Rx naproxen 500 mg tablet 500 mg PO BID PRN pain #40 tabs 11/22/22 09/04/23 Rx nitrofurantoin 100 mg PO BID #10 caps 09/04/23 09/04/23 Rx monohydrate/macrocrystals 100 mg capsule (Macrobid) valacyclovir 500 mg tablet 500 mg PO Q12H #10 tabs 09/11/23 Rx dextroamphetamine-amphetamine 5 mg 5 mg PO TID #84 tabs 09/27/23 Rx tablet (Adderall) hydroxyzine HCl 10 mg tablet 10 mg PO BEDTIME #90 tabs 10/10/23 Rx Allergies Allergy/AdvReac Type Severity Reaction Status Date / Time No Known Drug Allergies Allergy Verified 10/15/23 11:51 Review of Systems Review of Systems Narrative: All else reviewed and otherwise unremarkable except as noted in the history and physical. Exam Vital Signs (past 8 hours): - 10/15/23 11:33 10/15/23 16:04 Temperature 98.0 F Pulse Rate 93 H 102 H Respiratory Rate 19 18 Blood Pressure 131/93 H 128/81 Pulse Oximetry 99 97 Oxygen Delivery Method Room Air Room Air Oxygen Delivery Method Room Air Narrative Exam Narrative: NAD, alert and oriented, fluent speech, anxious. She is multiple tattoos. Normocephalic skull, EOMI, anicteric sclera, symmetric pupils. Oropharynx unremarkable, no droop. Neck supple, midline trachea, no adenopathy. Lungs clear, normal rate and effort. Heart regular, no murmur gallop or rub. Abdomen is soft, non distended and non tender. Extremities are free of edema. Skin is free of rash or lesions. Except she is multiple tattoos, 2 nose piercings, and multiple previous scars on her left wrist from self cutting behavior as well as 1 more subacute laceration. Joints are not swollen or deformed. Judgment appears to be abnormal. Objective Labs 10/15/23 12:31 10/15/23 12:31 Labs: Laboratory Results - last 24 hr 10/15/23 10/15/23 10/15/23 12:00 12:29 12:31 WBC 6.4 RBC 4.07 Hgb 13.5 Hct 39.7 MCV 97.5 MCH 33.3 MCHC 34.1 RDW 13.6 Plt Count 243 Neut % (Auto) 77.7 H Lymph % (Auto) 13.9 L [place] % (Auto) 5.3 Eos % (Auto) 0.6 L Baso % (Auto) 2.5 H Neut # (Auto) 5000 Lymph # (Auto) 900 L [place] # (Auto) 300 Eos # (Auto) 0 Baso # (Auto) 200 H Sodium 138 Potassium 3.9 Chloride 104 Carbon Dioxide 23 BUN 17 Creatinine 0.61 Estimated GFR > 60 BUN/Creatinine Ratio 27.9 H Glucose 151 H Calcium 8.8 Magnesium 1.8 Total Bilirubin 0.8 AST 53 H ALT 27 Alkaline Phosphatase 65 Total Protein 7.2 Albumin 4.2 Globulin 3.0 Albumin/Globulin Ratio 1.4 HCG, Quant < 2.4 Salicylates < 1.0 U Opiates 300ng/mL cut Negative Ur Oxycodone Screen Negative Urine Methadone Screen Negative Acetaminophen < 10 Ur Barbiturates Screen Negative U Tricyclic Antidepress Negative Ur Phencyclidine Scrn Negative Ur Amphetamines Screen Positive H U Methamphetamines Scrn Negative Ur MDMA Scrn (Ecstasy) Negative U Benzodiazepines Scrn Negative Urine Cocaine Screen Negative U Marijuana (THC) Screen Negative Urine pH Normal Urine Specific [place] Normal Ethyl Alcohol 116 H Ur Creatinine Normal Assessment & Plan Assessment & Plan narrative: 1. Acute alcohol withdrawal, present on admission and active. 2. Alcohol use disorder, present on admission and active. 3. Anxiety and depression, present on admission and active. 4. Recent self-harm behaviors, present on admission and active. 5. ADHD, present on admission and active. Plan: -alcohol withdrawal support with the CIWA protocol and thiamine. -fluid resuscitation. -resume usual medications for anxiety and depression. -social work consult to discuss other resources for her depression and anxiety and other behaviors. She is full resuscitation. Her mother is with her, she is proxy for healthcare decisions. She is admitted to inpatient status with an anticipation of 2 midnights of medically necessary hospital level care. Time Spent With Patient Time with patient: 30 to 49 minutes with 50% spent counseling/coordinating care Quality MIPS - Admit I confirm the patient?s Advance Care Plan is present, Code status is documented, Surrogate decision maker is in patient?s record [If Yes, STOP here]: Yes [facility] - Meds 'Current medications' to include all prescriptions, [id number] products, herbals, cannabis/cannabidiol products, and vitamin/mineral/dietary (nutritional) supplements. I have utilized all available resources to obtain, update, or review the patient?s current medications. [If Yes, STOP here]: Yes
[2023-10-15] MEDS: SODIUM CHLORIDE 0.9% 1,000 ML 100 ML IV (18:36)
[2023-10-15] MEDS: ONDANSETRON 4 MG/2 ML INJ IV (21:36)
--- NOTE | 2023-10-15 21:51 | PC.NURSE ---
coping skills [id number] this RN responded to pt's call light. pt asking what the purpose is of her staying in the hospital. This RN asked pt if she was in the hospital because she wanted to get sober again. 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 Pt lives alone but states has been dating someone who doesn't give her attention and then gaslights her when she voices any problems in the relationship. She says that she was very close to her grandfather who and also had a brother who that she didn't really deal with the grief of. Pt states that she had a counselor that she liked but then the counselor moved and she hasn't found anyone since. She states she's never been that close with her mom but that her mom is currently helping with her dog and has been at the hospital to bring pt things since she's been admitted. Pt states that she's been self harming carving to deal with her grief and frustration with her relationship. Pt has visible scaring to L forearm. This RN asked pt if that's the only area of self harm and pt states has also performed cutting to her thighs but not recently. Pt has bike shorts on to prevent visualization. Pt states she does want resources for after hospitalization but it's not the alcohol. I could stop that anytime. It's the relationship that I keep going back to that triggers the alcohol. Pt educated that are care management team will be seeing her in the morning to help her come up with a plan for when she discharges.
[2023-10-15] MEDS: cloNIDine 0.1 MG TABLET PO (22:01)
--- NOTE | 2023-10-15 23:01 | PC.NURSE ---
Patient is alert and oriented although expressing anxiety and mild tremors w/CIWA of 3; medicated with Clonidine. Breath sounds CTA with RA sat of 98%. HRR but tachy at time of assessment with rate of 109 but telemetry reading was SR. Did complain of nausea without emesis and was medicated with Zofran. BT present and reports having had BM earlier today. Denied dysuria; having hematuria related to menses. Is able to move herself in bed and gets out of bed with SBA although is stead on feet. Bilateral calf SCD's were applied. Patient with many questions and doesn't seem to always remember what she is being told. Denied pain. Fall risk score is moderate and bed alarm is activated. Seizure pads on bed.
[2023-10-16 00:11] VITALS: BP 115/78; PULSE 73; RESP 20; TEMP 36.6; O2SAT 100
[2023-10-16] MEDS: ONDANSETRON 4 MG/2 ML INJ IV ×2 (03:07→08:54)
[2023-10-16] MEDS: LORazepam 2 MG/ML INJ IV (03:16)
[2023-10-16 03:46] VITALS: BP 111/73; PULSE 69; RESP 15; TEMP 36.2; O2SAT 100
[2023-10-16] MEDS: SODIUM CHLORIDE 0.9% 1,000 ML 100 ML IV (04:52)
[2023-10-16 06:32] LABS: Add Manual Diff / Slide Review NO; Basophils Absolute Auto 100 /uL (0-100); Basophils Percent Auto 1.4 % (0-2); Eosinophils Absolute Auto 100 /uL (0-450); Eosinophils Percent Auto 2.8 % (2-4); Hematocrit 35.9 % (36-46); Hemoglobin 12.3 g/dL (12.0-16.0); Lymphocytes Absolute Auto 1400 /uL (1100-4500); Lymphocytes Percent Auto 26.4 % (25-40); Mean Corpuscular HGB Conc 34.3 % (30-36); Mean Corpuscular Hemoglobin 33.5 PG (26-34); Mean Corpuscular Volume 97.5 fL (80-100); Monocytes Absolute Auto 600 /uL (0-900); Neutrophils Absolute Auto 3100 /uL (1500-7000); Neutrophils Percent Auto 58.4 % (50-75); Platelet Count 204 X10^3/uL (150-400); Red Blood Cell Count 3.68 X10^6/uL (4.0-5.2); Red Cell Distribution Width 13.4 % (11.6-14.8); White Blood Cell Count 5.3 X10^3/uL (4.5-11.0)
[2023-10-16 06:53] LABS: BUN Creatinine Ratio 21.1 (6-22); Blood Urea Nitrogen 12 mg/dL (7-17); Calcium 8.2 mg/dL (8.4-10.2); Carbon Dioxide 24 mmol/L (22-32); Chloride 104 mmol/L (98-107); Estimated Glomerular Filt Rate > 60 mL/min (>60); Glucose 91 mg/dL (70-100); HEMOLYSIS < 15 (0-50); Potassium 3.8 mmol/L (3.4-5.1); Sodium 133 mmol/L (137-145)
[2023-10-16 07:00] VITALS: BP 115/84; PULSE 65; RESP 18; TEMP 36.5; O2SAT 99
[2023-10-16 08:46] VITALS: BP 115/84; PULSE 65
[2023-10-16] MEDS: cloNIDine 0.1 MG TABLET PO (08:46)
[2023-10-16] MEDS: FOLIC ACID 1 MG TABLET PO (08:47)
[2023-10-16] MEDS: THIAMINE 100 MG TABLET PO (08:47)
[2023-10-16] MEDS: MULTIVITAMIN 1 TABLET 1 TAB PO (08:47)
--- NOTE | 2023-10-16 10:41 | P.DS_ITS ---
History of Present Illness History of Present Illness Date Patient Seen: 10/16/23 Time Patient Seen: 10:43 Chief complaint: alcohol withdraw Narrative: Per admitting provider, The patient is a 38-year-old female with history of anxiety, depression, and self-harm as well as ADHD and alcohol use disorder. She presents today with acute alcohol withdrawal. She had been sober for about 5 years from age [age]. She has recently been drinking up to a half of a bottle of whiskey on a daily basis. She is currently working as a sewer cleaner. This period of drinking has been ongoing for approximately 2 years. She has escalated back to previous high levels consumption. She denies history of any rehabilitation or other treatment options in the past. She apparently reached out to her ex-boyfriend to ask for help and was brought to the emergency department. Here she has a CIWA score of 13. She notes that her depression is more active recently and she has been doing some self-harm with cutting. She lives in [place], her mother is with her and lives in [place]. She is currently bartending 2 different places. She is in an on again off again relationship with somebody on [facility]. She denies use of street drugs. She notes that she believes she has borderline personally disorder and that she is very sensitive and this is why she needs to self medicate. She is drinking close to a bottle of whiskey a day. She would her last drink last night around midnight. She will frequently drink in the morning. She has never done rehabilitation, and does not resonate with AA. She has had up to 5 years of broken sobriety in the past. She believes that she is slowly trying to drink herself to . She denies recent injuries, difficulty with breathing, or chest pain. She is concerned about a lump in her left breast. She denies any nausea or vomiting. No rectal bleeding. Discharge Providers Provider Date of admission: 10/15/23 16:39 Discharge Date: 10/16/23 Primary care physician: Gasper Boateng MD Consults: 10/15/23 17:45 Consult to Dietitian, Adult Routine Comment: Reason For Exam: Alcohol use disorder 10/15/23 17:46 Consult to Projects Manager Routine Comment: alcohol use disorder and mental health (self cutti 10/15/23 18:02 Consult to DIRECTOR OF MARKETING - Projects Manager Routine Comment: ETOH withdrawl Discharge provider: Tanmay Ruiz DO Summary Hospital Course Discharge Diagnosis: 1. Acute alcohol withdrawal, present on admission and active. 2. Alcohol use disorder, present on admission and active. 3. Anxiety and depression, present on admission and active. 4. Recent self-harm behaviors, present on admission and active. 5. ADHD, present on admission and active. Plan: -alcohol withdrawal support with the CIWA protocol and thiamine. -fluid resuscitation. -resume usual medications for anxiety and depression. -social work consult to discuss other resources for her depression and anxiety and other behaviors. Hospital Course: This is a 38 year old female with PMH of EtOH use, anxiety depression and ADHD with recent self harm behaviors who was admitted with possible alcohol withdrawal. CIWA was reported to be 13 in the ER. CIWA protocol was intitiated and the following morning patient had only CIWA of 2, and was not tremulous nor had any tongue fasciculations. She was discharged home at that time. She had no evidence of infection on her left arm with recent cutting behavior. She was seen by social work prior to discharge as well. No medication changes recommended at discharge. Time Spent with Patient Time spent: Less than 30 minutes Exam Vital Signs (past 8 hours): - 10/16/23 03:46 10/16/23 03:46 10/16/23 07:00 Temperature 97.2 F L 97.7 F Pulse Rate 69 69 65 Respiratory Rate 15 15 18 Blood Pressure 111/73 111/73 115/84 Pulse Oximetry 100 99 Oxygen Flow Rate 0 10/16/23 08:46 Temperature Pulse Rate 65 Respiratory Rate Blood Pressure 115/84 Pulse Oximetry Oxygen Flow Rate Oxygen Delivery Method Room Air Oxygen Flow Rate 0 Narrative Exam Narrative: Gen: mildly anxious irritated Neuro: no tremors or tongue fasciculations Ext: L forearm superficial lacerations without surrounding erythema or induration, healing. Objective Labs 10/16/23 06:20 10/16/23 06:20 Labs: Laboratory Results - last 24 hr 10/15/23 10/15/23 10/15/23 12:00 12:29 12:31 WBC 6.4 RBC 4.07 Hgb 13.5 Hct 39.7 MCV 97.5 MCH 33.3 MCHC 34.1 RDW 13.6 Plt Count 243 Neut % (Auto) 77.7 H Lymph % (Auto) 13.9 L Smyth % (Auto) 5.3 Eos % (Auto) 0.6 L Baso % (Auto) 2.5 H Neut # (Auto) 5000 Lymph # (Auto) 900 L Smyth # (Auto) 300 Eos # (Auto) 0 Baso # (Auto) 200 H Sodium 138 Potassium 3.9 Chloride 104 Carbon Dioxide 23 BUN 17 Creatinine 0.61 Estimated GFR > 60 BUN/Creatinine Ratio 27.9 H Glucose 151 H Calcium 8.8 Magnesium 1.8 Total Bilirubin 0.8 AST 53 H ALT 27 Alkaline Phosphatase 65 Total Protein 7.2 Albumin 4.2 Globulin 3.0 Albumin/Globulin Ratio 1.4 HCG, Quant < 2.4 Salicylates < 1.0 U Opiates 300ng/mL cut Negative Ur Oxycodone Screen Negative Urine Methadone Screen Negative Acetaminophen < 10 Ur Barbiturates Screen Negative U Tricyclic Antidepress Negative Ur Phencyclidine Scrn Negative Ur Amphetamines Screen Positive H U Methamphetamines Scrn Negative Ur MDMA Scrn (Ecstasy) Negative U Benzodiazepines Scrn Negative Urine Cocaine Screen Negative U Marijuana (THC) Screen Negative Urine pH Normal Urine Specific [place] Normal Ethyl Alcohol 116 H Ur Creatinine Normal 10/16/23 06:20 WBC 5.3 RBC 3.68 L Hgb 12.3 Hct 35.9 L MCV 97.5 MCH 33.5 MCHC 34.3 RDW 13.4 Plt Count 204 Neut % (Auto) 58.4 Lymph % (Auto) 26.4 Smyth % (Auto) 11.0 Eos % (Auto) 2.8 Baso % (Auto) 1.4 Neut # (Auto) 3100 Lymph # (Auto) 1400 Smyth # (Auto) 600 Eos # (Auto) 100 Baso # (Auto) 100 Sodium 133 L Potassium 3.8 Chloride 104 Carbon Dioxide 24 BUN 12 Creatinine 0.57 Estimated GFR > 60 BUN/Creatinine Ratio 21.1 Glucose 91 Calcium 8.2 L Magnesium Total Bilirubin AST ALT Alkaline Phosphatase Total Protein Albumin Globulin Albumin/Globulin Ratio HCG, Quant Salicylates U Opiates 300ng/mL cut Ur Oxycodone Screen Urine Methadone Screen Acetaminophen Ur Barbiturates Screen U Tricyclic Antidepress Ur Phencyclidine Scrn Ur Amphetamines Screen U Methamphetamines Scrn Ur MDMA Scrn (Ecstasy) U Benzodiazepines Scrn Urine Cocaine Screen U Marijuana (THC) Screen Urine pH Urine Specific [place] Ethyl Alcohol Ur Creatinine PFSH Medical History Alcohol use disorder ADHD (attention deficit hyperactivity disorder), combined type Hearing loss Asthma Painful menstrual periods Irregular menstrual cycle Family History Grandfather Mental health problem Dementia Grandmother Cancer Social History household members: none Smoking Status: Current every day smoker alcohol intake: current Discharge Plan Discharge Plan Patient Disposition: Home Provider Discharge Comment: Admitted for mild alcohol withdrawal, now improved. Okay for discharge home. Recommend follow up with PCP and psychiatry / behavioral health. Discharge orders & Medications Prescriptions: Continued hydroxyzine HCl 10 mg tablet 10 mg PO BEDTIME Qty: 90 3RF dextroamphetamine-amphetamine 5 mg tablet 1 tab PO 4XD naproxen 500 mg tablet 500 mg PO BID PRN (Reason: pain) Qty: 40 0RF Rx Instructions: Take with food Follow up/Referrals: Gasper Boateng MD [Primary Care Provider] - Visit Report/Discharge Packet Stand Alone Forms: Patient Portal/API, Stroke Signs & Symptoms Discharge Data Primary Care Provider: Gasper Boateng
--- NOTE | 2023-10-16 10:53 | CM.DANOTE ---
Initial DCP Assessment Note Reviewed EMR and team rounds for status updates. Met with pt and her mother at bedside to introduce self and role. Pt was found to be getting ready to d/c, her mother will plan to transport her home. Pt declines any resource needs, although PROJECT LANDSCAPE ARCHITECT did provide her with the [employer] insurance information to access immediate Behavioral Health support and therapist recommendations that they contract with. No further DCP needs idenfied at this time. Payor: [employer] PCP: Dr. Gasper Boateng Pt is a 38 year-old F with a PMH of anxiety, depression, ADHD, self harm with cutting, and alcohol use disorder was brought to EMS for alcohol withdrawal symptoms. She shared that she drinks about 1/2 a fifth of whiskey per day, however she does not feel that she has a problem, and can stop anytime I want. She feels that her on/off relationship with a former boyfriends causes her to drink and then cut herself. Yesterday evening her CIWA score was 13, it's now at 3. Pt denies the need for any OP tx options or assistance. Discharge Planning/Care Management CM Discharge Assessment Start: 10/16/23 10:50 Freq: Status: Active Protocol: Document 10/16/23 10:51 DPL (Rec: 10/16/23 10:53 DPL [id number]) Discharge Planning Assessment Assigned Ship Fitter MITZY Matthews Advance Directives? No History Provided By Patient,Family Member,Medical Record Has Patient been admitted in last 30 No days? Prior Living Arrangements Apartment/Condo Household Members none Type of transporation used prior to Drives own vehicle admit Independent with ADL's Yes Is patient alert and oriented? Yes Comment N/A Caregiver for Another No Comment No identified d/c needs. This PROJECT LANDSCAPE ARCHITECT did provide her with the contact information for her insurance's Behavioral Health hotline in order to obtain OP counseling. Barriers to Discharge No Discharge Plan Home Referrals Initiated None needed Review Status In Process Please Provide Date Initial DC 10/16/23 Assessment Was Performed
== END 2023-10-16 11:00 | disposition home or self-care (01) | DRG 897 ==
LOC: ED 11:55 → AC 17:44
PROVIDERS: Admitting Provider Hospitalist; Emergency Provider Emergency Medicine; PCP Family Medicine; Referring Provider Emergency Medicine; Visit Provider Hospitalist
DX: F10.939 Alcohol use, unspecified with withdrawal, unspecified (principal); F32.A Depression, unspecified; F41.9 Anxiety disorder, unspecified; F90.9 Attention-deficit hyperactivity disorder, unspecified type; F17.200 Nicotine dependence, unspecified, uncomplicated; Y90.5 Blood alcohol level of 100-119 mg/100 ml; Z91.52 Personal history of nonsuicidal self-harm
CPT/HCPCS: 36415; 80048; 80053; 80305; 80320; 80329; 81003; 81025; 83735; 84702; 85025; 87077; 87086; 87186; 96374; 96376; 99284; G0378; G0480; J2060; J2405

== ENCOUNTER 2024-03-29 21:15 | Emergency (ER) | payer BC, SELFPAY ==
[2023-10-15 17:45] VITALS: BMI 24.0
[2024-03-29 21:22] VITALS: BP 126/83; PULSE 81; RESP 16; TEMP 36.6; O2SAT 96; BMI 23.8
--- NOTE | 2024-03-29 21:30 | DI.RAD.S_ITS ---
PROCEDURE: XR FOOT LT MIN 3V INDICATIONS: injury, pain, difficulty Wt bearing TECHNIQUE: 3 views of the foot were acquired. COMPARISON: [facility] ([place]), [place], XR FOOT RT MIN 3V, 02/16/2022, 16:32. [facility] ([place]), [place], XR FOOT RT MIN 3V, 02/04/2022, 12:12. FINDINGS: Bones: No fractures or dislocations. No suspicious bony lesions. Soft tissues: No tibiotalar joint effusion. Achilles tendon appears normal. IMPRESSION: No displaced fracture. If there remains a high clinical concern or the patient cannot bear weight, consider cross-sectional imaging to exclude an occult fracture. Dictated by: Michael Max M.D. on 03/29/2024 at 22:00 Approved by: Michael Max M.D. on 03/29/2024 at 22:00
--- NOTE | 2024-03-29 22:36 | ED_ITS ---
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 Here requesting x-ray imaging of the left foot. No history of prior foot problems, plantar fasciitis, or change in footwear activities. He has been taking Midol and also ibuprofen for her menstrual pain, which seems to be managing her foot pain. No re-injury since the printer contusion fall injury last week. No pain to the left ankle, foreleg, knee, thigh, hip. No injuries to the contralateral lower extremity, nor to either upper extremity. Related Data Previous Rx's Medication Instructions Recorded naproxen 500 mg tablet 500 mg PO BID PRN pain #40 tabs 11/22/22 hydroxyzine HCl 10 mg tablet 10 mg PO BEDTIME #90 tabs 10/10/23 dextroamphetamine-amphetamine 5 mg See Rx Instructions .Route 03/08/24 tablet .COMPLEX #84 tabs Allergies Allergy/AdvReac Type Severity Reaction Status Date / Time No Known Drug Allergies Allergy Verified 10/15/23 11:51 Review of Systems Review of Systems Narrative: see HPI Patient History Medical History Alcohol use disorder ADHD (attention deficit hyperactivity disorder), combined type Hearing loss Asthma Painful menstrual periods Irregular menstrual cycle Family History Grandfather Mental health problem Dementia Grandmother Cancer Social History household members: none Smoking Status: Current every day smoker alcohol intake: current Smoking Status: Current every day smoker tobacco type: vaping alcohol intake frequency: 3 or more drinks per day Alcohol type: hard liquor Substance Use Type: does not use Exam Narrative Exam Narrative: GENERAL: Well-developed patient, in mild distress. HEAD: Atraumatic. Normocephalic. EYES: Pupils equal round and reactive. Extraocular motions intact. No scleral icterus. No injection or drainage. ENT: Nose without bleeding, purulent drainage. Throat without erythema, tonsillar hypertrophy or exudate. Airway patent. NECK: Trachea midline. Non tender CARDIOVASCULAR: Regular rate and rhythm without murmurs, gallops, or rubs. RESPIRATORY: Clear to auscultation. Breath sounds equal bilaterally. No wheezes, rales, or rhonchi. GASTROINTESTINAL: Abdomen soft, non-tender, nondistended. EXTREMITIES: No edema or joint tenderness. No significant bony tenderness or redness or abrasion or swelling to the dorsal foot where there was reported contusion injury last week, patient believes there some swelling to the plantar aspect of left foot, not clinically obvious, no hematoma, no redness, no streaking, no significant tenderness on exam, no puncture wounds BACK: Nontender without deformity or crepitance. No flank tenderness. NEURO: AOx3. SKIN: No rash or erythema of visible areas Initial Vital Signs Initial Vital Signs: Vital Signs Temperature 97.8 F 03/29/24 21:22 Pulse Rate 81 03/29/24 21:22 Respiratory Rate 16 03/29/24 21:22 Blood Pressure 126/83 03/29/24 21:22 Pulse Oximetry 96 03/29/24 21:22 Oxygen Delivery Method Room Air 03/29/24 21:22 Course Orders Ordered: ED Orders 03/29/24 21:30 XR foot LT min 3V Stat Vital Signs Vital signs: Vital Signs - 8 hr 03/29/24 21:22 Temperature 97.8 F Pulse Rate 81 Respiratory Rate 16 Blood Pressure 126/83 Pulse Oximetry 96 Oxygen Delivery Method Room Air MDM - Extremity Injury (Lower) Imaging Data Extremity x-ray #1: Radiologist's Impression: [address] [address] XRay Report Signed Patient: Trupti Deras MR#: [id number] : 1985 Acct:[id number] Age/Sex: 39 / F Date of Service: 03/29/24 Loc: ED Accession Number: [id number] Procedure: XR foot LT min 3V Ordering Provider: Sky Pierre MD PROCEDURE: XR FOOT LT MIN 3V INDICATIONS: injury, pain, difficulty Wt bearing TECHNIQUE: 3 views of the foot were acquired. COMPARISON: [facility] ([place]), CR, XR FOOT RT MIN 3V, 02/16/2022, 16:32. [facility] ([place]), CR, XR FOOT RT MIN 3V, 02/04/2022, 12:12. FINDINGS: Bones: No fractures or dislocations. No suspicious bony lesions. Soft tissues: No tibiotalar joint effusion. Achilles tendon appears normal. IMPRESSION: No displaced fracture. If there remains a high clinical concern or the patient cannot bear weight, consider cross-sectional imaging to exclude an occult fracture. Dictated by: Michael Max M.D. on 03/29/2024 at 22:00 Approved by: Michael Max M.D. on 03/29/2024 at 22:00 MDM Narrative Medical decision making narrative: 39-year-old female with left foot persisting pain 1 week after printer at home fell on the top of her left foot, there was some dorsal foot pain initially, then seems to have some swelling and persisting pain in the plantar aspect of the ipsilateral foot at the heel. No change in footwear. No pre-existing plantar fasciitis recalled. Requests for x-rays, done, no obvious fractures per radiologist's report. Consider orthotics [id number]. She declines nonweightbearing with crutches, declines cast shoe. She is leaving for [employer] job next week, follow up there if persisting symptoms. Return precautions discussed. Given local orthopedic surgery contact information if she wants to be seen Monday, to have some area contact. Discharged home, stable Discharge Plan Departure Patient Disposition: Home Clinical Impression: Foot pain, left, Contusion of foot, left Activity Restrictions/Additional Instructions: Persisting left foot pain 1 week after direct blow from a printer that fell onto the top of the left foot, initial pain in that area, then migratory pain and some swelling to the heel area on that same left foot. No re-injury reported. No redness or obvious swelling, no tenderness. X-rays done, radiologist's report indicates no evidence of fracture at this time. Consider soft tissue injury, ligamentous injury component, sometimes this is not obvious and is diagnosed by follow up MRI if there is persisting symptoms. Consider occult fracture not seen on plain x-rays, we discussed CT scanning of the foot, however we will hold this study now, likely not worth the expense and radiation exposure. Hopefully this is a self-limited problem and we will continue to improve after initial injury. Try rest ice elevation and use of continued anti- inflammatory medications. You are leaving for [employer] job next week. If you are still having trouble Monday you could consider local orthopedic surgeon follow up, contact information provided for Dr. Box. Consider follow up if you have persisting symptoms while in [employer]. Return to this/nearest emergency department for any change worsening symptoms or any concerns prior Prescriptions: No Action hydroxyzine HCl 10 mg tablet 10 mg PO BEDTIME Qty: 90 3RF dextroamphetamine-amphetamine 5 mg tablet See Rx Instructions .ROUTE .COMPLEX Qty: 84 0RF Rx Instructions: 1 tablet PO TID; Must last 28 days. Release date 03/08/24 naproxen 500 mg tablet 500 mg PO BID PRN (Reason: pain) Qty: 40 0RF Rx Instructions: Take with food Referrals: Tommie Box MD [Physician] - Gasper Boateng MD [Primary Care Provider] - Stand Alone Forms: Patient Portal/API
== END 2024-03-29 23:15 | disposition home or self-care (01) ==
PROVIDERS: Emergency Provider Emergency Medicine; PCP Family Medicine
DX: S90.32XA Contusion of left foot, initial encounter (principal); M79.672 Pain in left foot; X58.XXXA Exposure to other specified factors, initial encounter
CPT/HCPCS: 73630; 99281; 99283